=== PATIENT | female | born 1950 | race Caucasian/White ===

== ENCOUNTER 2021-10-07 06:27 | Observation (INO) ==
[2021-10-07] MEDS ORDERED: Iopamidol - 370 500 ML MLS IVP ONE (06:43)
[2021-10-07] MEDS: *HR* LORazepam 2 MG/ML VIAL IVP ONE ×2 (06:48→09:53)
[2021-10-07 06:54] LABS: Basophils # 0.1 K/mcL (0.0-0.2); Basophils % 0.8 %; Eosinophils # 0.1 K/mcL (0.0-0.6); Eosinophils % 1.1 %; Hematocrit 43.5 % (35.3-44.9); Hemoglobin 14.6 g/dL (11.5-15.4); Immature Granulocytes % 0.7 % (0-4); Lymphocytes # 3.2 K/mcL (0.6-4.6); Mean Corpuscular HGB Conc 33.6 g/dL (31.6-35.5); Mean Corpuscular Hemoglobin 29.5 pg (28.0-33.3); Mean Corpuscular Volume 87.9 fL (83.0-100.0); Monocytes # 0.7 K/mcL (0.0-1.3); Monocytes % 6.8 %; Neutrophils # 5.6 K/mcL (1.6-8.9); Platelet Count 266 K/mcL (140-400); Red Blood Count 4.95 M/mcL (3.82-4.97); Red Cell Distribution Width 12.7 % (11.5-14.5); Segmented Neutrophils % 57.6 %; White Blood Count 9.8 K/mcL (4.3-11.1)
[2021-10-07] MEDS ORDERED: *HR* LORazepam 2 MG/ML VIAL IVP ONE ×2 (06:56)
[2021-10-07] MEDS ORDERED: Haloperidol Lactate 5 MG/ML VIAL IVP ONE (07:06)
[2021-10-07 07:16] LABS: Alanine Aminotransferase 34 Units/L (7-52); Albumin 4.3 g/dL (3.5-5.7); Albumin/Globulin Ratio 1.3 (1.1-2.2); Alkaline Phosphatase 65 Units/L (34-104); Aspartate Amino Transferase 47 Units/L (13-39); BUN/Creatinine Ratio 13 (6-26); Bilirubin,Direct 0.2 mg/dL (0.0-0.2); Bilirubin,Indirect 0.7 mg/dL (0.0-1.0); Bilirubin,Total 0.9 mg/dL (0.3-1.0); Blood Urea Nitrogen 12 mg/dL (8-23); Calcium 9.9 mg/dL (8.6-10.3); Carbon Dioxide 24 mEq/L (23-29); Chloride 94 mEq/L (98-107); Ethanol < 10 mg/dL (Less than 10); Globulin 3.3 g/dL (2.4-3.5); Glucose 172 mg/dL (70-105); Osmolality,Calculated 282 (280-300); Potassium 3.3 mEq/L (3.5-5.1); Sodium 134 mEq/L (136-145); Total Protein 7.6 g/dL (6.4-8.9); Troponin I < 0.03 ng/mL (< 0.04); eGFR For African Americans > 60 (> 60); eGFR For Non-African Americans 57 (> 60)
[2021-10-07 07:26] LABS: Prothrombin Time 32.9 Seconds (9.4-12.1)
[2021-10-07 07:31] LABS: Activated Partial Thrombo Time 47.4 Seconds (26.0-36.0)
[2021-10-07] MEDS ORDERED: levETIRAcetam 1,500 MG in 0.9 % Sodium Chloride 250 ML IVPB ONE (08:10)
[2021-10-07 09:22] LABS: Bacteria,Urine Few per hpf (None-Few); Bilirubin,Urine Negative (Negative); Blood,Urine Trace (Negative); Clarity,Urine Clear (Clear); Color,Urine Light-Yellow (Yellow); Glucose,Urine (UA) Normal (Normal); Ketones,Urine Negative (Negative); Leukocyte Esterase,Urine Large (Negative); Mucus,Urine Few per lpf (None-Few); Nitrite,Urine Positive (Negative); PH,Urine 7.5 pH Units (5.0-8.0); Protein,Urine Trace mg/dL (Neg-Trace); RBC,Urine 15-30 per hpf (0-3); Specific Gravity,Urine > 1.030 (1.010-1.025); Squamous Epithelial Cell,Urine Few per hpf (None-Few); Urobilinogen,Urine Normal (Normal); WBC,Urine 50-100 per hpf (0-3)
[2021-10-07] MEDS ORDERED: CeFAZolin 2,000 MG/120 ML BAG IVPB ONE (09:33)
[2021-10-07 09:35] LABS: Amphetamine Screen,Urine Negative ng/mL (Cutoff=1000); Barbiturate Screen,Urine Negative ng/mL (Cutoff=200); Benzodiazepines Screen,Urine Negative ng/mL (Cutoff=200); Cannabinoid Screen,Urine Negative ng/mL (Cutoff = 50); Cocaine Screen,Urine Negative ng/mL (Cutoff= 300); Opiate Screen,Urine Negative ng/mL (Cutoff=300); Phencyclidine Screen,Urine Negative ng/mL (Cutoff=25)
[2021-10-07 10:53] LABS: Magnesium 1.7 mg/dL (1.6-2.6); Phosphorous 2.7 mg/dL (2.7-4.5)
[2021-10-07] MEDS ORDERED: Ondansetron 4 MG/2 ML VIAL IVP PRN (11:31)
[2021-10-07] MEDS ORDERED: *HR* LORazepam 2 MG/ML VIAL IVP PRN (11:34)
[2021-10-07] MEDS: levETIRAcetam 250 MG TABLET PO SCH (17:25)
[2021-10-07] MEDS ORDERED: Warfarin perPT PO PRN (18:00)
[2021-10-07] MEDS ORDERED: *HR* Warfarin 1 MG TABLET PO ONE (18:00)
[2021-10-08 02:36] LABS: BUN/Creatinine Ratio 14 (6-26); Blood Urea Nitrogen 10 mg/dL (8-23); Calcium 9.4 mg/dL (8.6-10.3); Carbon Dioxide 28 mEq/L (23-29); Chloride 97 mEq/L (98-107); Glucose 121 mg/dL (70-105); INR 3.1; Osmolality,Calculated 278 (280-300); Prothrombin Time 34.5 Seconds (9.4-12.1); Sodium 134 mEq/L (136-145); eGFR For African Americans > 60 (> 60); eGFR For Non-African Americans > 60 (> 60)
[2021-10-08] MEDS: levETIRAcetam 250 MG TABLET PO SCH (05:59)
[2021-10-08] MEDS ORDERED: lisinopriL 10 MG TABLET PO SCH (09:00)
[2021-10-08] MEDS ORDERED: Aspirin Enteric Coated 81 MG Tablet PO SCH (09:00)
[2021-10-08] MEDS ORDERED: *HR* Amiodarone 200 MG TABLET PO SCH (09:00)
[2021-10-08 11:03] VITALS: BP 150/82; PULSE 78; TEMP 97.4; O2SAT 99
[2021-10-08] MEDS ORDERED: cefTRIAXone 1,000 MG in 0.9 % Sodium Chloride Mini Bag 100 ML IVPB SCH (14:00)
[2021-10-08] MEDS ORDERED: *HR* Warfarin 1 MG TABLET PO ONE (18:00)
== END 2021-10-08 15:20 | disposition home or self-care (01) ==
LOC: EMEROOARM 06:27 → 3BNU 06:27 → SUATTDRO 11:53 → 3BNU 13:30
PROVIDERS: ADMIT Internal Medicine; ATTEND Registered Nurse